=== PATIENT | female | born 2000 | race Caucasian/White ===

== ENCOUNTER 2021-01-15 22:24 | Emergency (ER) | payer OTHER ==
[2021-01-15 22:38] VITALS: BP 112/78; PULSE 80; TEMP 98; BMI 23.9
== END 2021-01-16 00:32 | disposition home or self-care (01) ==
LOC: JER 22:24 → JERFT 22:24 → JER 01-16 00:32
DX: R59.9 Enlarged lymph nodes, unspecified (principal)
CPT/HCPCS: 99283-25